=== PATIENT | female | born 1955 | race Caucasian/White ===

== ENCOUNTER → 2022-07-30 | Outpatient (CLI) | payer BC ==
[2022-07-30 15:00] LABS: Albumin 4.4 g/dL (3.8-4.9); Albumin/Globulin Ratio 1.57 (1.60-3.17); Anion Gap 11.8 mmol/L (10.00-18.00); Blood Urea Nitrogen 17.6 mg/dL (9.0-27.0); Calcium 9.6 mg/dL (8.7-10.3); Carbon Dioxide 29.2 mmol/L (20.0-27.5); Globulin 2.8 g/dL (1.6-3.3); Non-African American GFR(CKD) 76.8 (60.0-200.0); Potassium 4.1 mmol/L (3.5-5.5); T4, Free (Free Thyroxine) 1.34 ng/dL (0.800-1.800); Total Bilirubin 0.3 mg/dL (0.30-1.20); Total Protein 7.2 g/dL (6.2-8.2)
== END | disposition home or self-care (01) ==
LOC: LABWHC1 09:03
PROVIDERS: ATTEND Internal Medicine
DX: E89.0 Postprocedural hypothyroidism (principal); M81.0 Age-related osteoporosis without current pathological fracture
CPT/HCPCS: 36415; 80053; 84439; 84443; 84481

== ENCOUNTER → 2024-08-04 | Outpatient (CLI) | payer MEDICARE ==
[2024-08-04 18:17] LABS: ALT 19 U/L (8-44); AST 21 U/L (13-35); Albumin 4.4 g/dL (3.8-4.9); Alkaline Phosphatase 83 U/L (41-126); Blood Urea Nitrogen 16.8 mg/dL (9.0-27.0); Calcium 9.9 mg/dL (8.7-10.3); Carbon Dioxide 28.9 mmol/L (21.6-31.8); Chloride 102 mmol/L (96-109); Globulin 2.2 g/dL (1.6-3.3); Glucose 96 mg/dL (70-110); Potassium 4.3 mmol/L (3.5-5.5); Sodium 142 mmol/L (135-145); T4, Free (Free Thyroxine) 1.44 ng/dL (0.80-1.80); Total Bilirubin 0.4 mg/dL (0.3-1.2); Total Protein 6.6 g/dL (6.2-8.2)
== END | disposition home or self-care (01) ==
LOC: LABWHC1 09:17
PROVIDERS: ATTEND Internal Medicine
DX: I10 Essential (primary) hypertension (principal); E89.0 Postprocedural hypothyroidism; R73.02 Impaired glucose tolerance (oral)
CPT/HCPCS: 36415; 80053; 83036; 84439; 84443

== ENCOUNTER → 2025-02-03 | Outpatient (CLI) | payer MEDICARE ==
[2025-02-03 16:47] LABS: ALT 18 U/L (8-44); AST 21 U/L (13-35); Albumin 4.3 g/dL (3.8-4.9); Albumin/Globulin Ratio 1.72 Ratio (1.60-3.17); Alkaline Phosphatase 81 U/L (41-126); BUN/Creat Ratio 17.56 Ratio (12.00-20.00); Blood Urea Nitrogen 15.8 mg/dL (9.0-27.0); Calcium 10.1 mg/dL (8.7-10.3); Carbon Dioxide 29.1 mmol/L (21.6-31.8); Chloride 100 mmol/L (96-109); Globulin 2.5 g/dL (1.6-3.3); Glucose 97 mg/dL (70-110); Potassium 4.4 mmol/L (3.5-5.5); Sodium 140 mmol/L (135-145); T4, Free (Free Thyroxine) 1.48 ng/dL (0.80-1.80); Total Bilirubin 0.3 mg/dL (0.3-1.2); Total Protein 6.8 g/dL (6.2-8.2)
== END | disposition home or self-care (01) ==
LOC: LABWHC1 09:35
PROVIDERS: ATTEND Internal Medicine
DX: I10 Essential (primary) hypertension (principal); E89.0 Postprocedural hypothyroidism; M81.0 Age-related osteoporosis without current pathological fracture; R73.02 Impaired glucose tolerance (oral)
CPT/HCPCS: 36415; 80053; 82523; 83036; 84439; 84443